=== PATIENT | female | born 1985 | race Caucasian/White ===

== ENCOUNTER 2019-10-26 08:00 | Outpatient (CLI) | payer OTHER ==
[~2019-10-26] VITALS: Ht 156.2 cm; Wt 79.5 kg
[2019-10-26 05:50] LABS: BASOPHILS # (AUTO) 0.02 x10^3/uL (0-0.1); BASOPHILS % (AUTO) 0 % (0-1); EOSINOPHILS % (AUTO) 2 % (1-7); LYMPHOCYTES # (AUTO) 1.71 x10^3/uL (1-3.4); LYMPHOCYTES % (AUTO) 25 % (22-44); MD NO; MEAN CORPUSCULAR HEMOGLOBIN 30.7 pg (27.0-34.8); MEAN CORPUSCULAR HGB CONC 33.7 g/dL (32.4-35.8); MEAN CORPUSCULAR VOLUME 91.1 fL (80-100); MEAN PLATELET VOLUME 11.4 fL (7.4-10.4); MONOCYTES # (AUTO) 0.56 x10^3/uL (0.2-0.8); MONOCYTES % (AUTO) 8 % (2-9); NEUTROPHILS # (AUTO) 4.45 x10^3/uL (1.8-6.8); NEUTROPHILS % (AUTO) 65 % (42-75); PLATELET COUNT 149 x10^3/uL (130-400); RED BLOOD COUNT 4.07 x10^6/uL (3.82-5.3); RED CELL DISTRIBUTION WIDTH 13.9 % (9.6-15.2)
[~2019-10-26 08:00] MED LIST: AMOX1TAB64 PO; CALCIUM CARBONATE 500 MG TAB.CHEW PO PRN; D5%-LACTATED RINGERS 1,000 ML IV SCH; FENTANYL PF 100 MCG/2ML IV PRN; FENTANYL PF 100 MCG/2ML IVPush PRN; HYDR-3237 PO; LACTATED RINGERS 1,000 ML IV SCH; MISOPROSTOL 25 MCG TABLET ONE; MISOPROSTOL 25 MCG TABLET VG PRN; NEWBORN KIT ONE; ONDA4TAB10 PO; ONDANSETRON 2MG/ML, 2ML IVPush PRN; OXYTOCIN 30U/ 0.9% NaCL 500ML 500 ML IV ONE; OXYTOCIN 30U/ 0.9% NaCL 500ML 500 ML IV PRN; OXYTOCIN 30U/ 0.9% NaCL 500ML 500 ML ONE; PLEASE ENTER HEIGHT AND WEIGHT MC SCH; PREN-59 PO; SODIUM CHLORIDE FLUSH 10ML SYR IVF PRN; TERBUTALINE 1 MG/ML, 1ML IVPush PRN; TERBUTALINE 1 MG/ML, 1ML SQ PRN
[2019-10-26] MEDS ORDERED: MISOPROSTOL 25 MCG TABLET ONE (10:24)
[2019-10-27] MEDS ORDERED: ONDANSETRON 2MG/ML, 2ML ONE (09:57)
[2019-10-27] MEDS ORDERED: OXYTOCIN 30U/ 0.9% NaCL 500ML 500 ML ONE (15:35)
[2019-10-28] MEDS ORDERED: IBUP-1222 PO (08:03)
== END 2019-10-26 11:09 | disposition home or self-care (01) ==
LOC: LDOP 08:00 → EDSTATUS 08:54 → UNDODISIN 11:00 → LDOP 11:09
PROVIDERS: ATTEND Obstetrics & Gynecology
DX: O47.1 False labor at or after 37 completed weeks of gestation (principal); Z3A.40 40 weeks gestation of pregnancy
CPT/HCPCS: 36415; 85025; 86592; 86850; 86900; G0378

== ENCOUNTER 2020-01-14 10:12 | Outpatient (CLI) | payer OTHER ==
[~2020-01-14 10:12] MED LIST changes: -CALCIUM CARBONATE 500 MG TAB.CHEW PO PRN; -D5%-LACTATED RINGERS 1,000 ML IV SCH; -FENTANYL PF 100 MCG/2ML IV PRN; -FENTANYL PF 100 MCG/2ML IVPush PRN; +IBUP-1222 PO; -LACTATED RINGERS 1,000 ML IV SCH; -MISOPROSTOL 25 MCG TABLET ONE; -MISOPROSTOL 25 MCG TABLET VG PRN; -NEWBORN KIT ONE; -ONDANSETRON 2MG/ML, 2ML IVPush PRN; -OXYTOCIN 30U/ 0.9% NaCL 500ML 500 ML IV ONE; -OXYTOCIN 30U/ 0.9% NaCL 500ML 500 ML IV PRN; -OXYTOCIN 30U/ 0.9% NaCL 500ML 500 ML ONE; -PLEASE ENTER HEIGHT AND WEIGHT MC SCH; -SODIUM CHLORIDE FLUSH 10ML SYR IVF PRN; -TERBUTALINE 1 MG/ML, 1ML IVPush PRN; -TERBUTALINE 1 MG/ML, 1ML SQ PRN
[2020-01-14] MEDS ORDERED: LACTATED RINGERS 1,000 ML IV SCH (10:45)
[2020-01-14 11:20] LABS: BASOPHILS # (AUTO) 0.03 x10^3/uL (0-0.1); BASOPHILS % (AUTO) 1 % (0-1); EOSINOPHILS # (AUTO) 0.13 x10^3/uL (0-0.4); EOSINOPHILS % (AUTO) 2 % (1-7); LYMPHOCYTES # (AUTO) 2.19 x10^3/uL (1-3.4); LYMPHOCYTES % (AUTO) 39 % (22-44); MD NO; MEAN CORPUSCULAR HEMOGLOBIN 30.3 pg (27.0-34.8); MEAN CORPUSCULAR HGB CONC 33.2 g/dL (32.4-35.8); MEAN PLATELET VOLUME 9.2 fL (7.4-10.4); MONOCYTES # (AUTO) 0.42 x10^3/uL (0.2-0.8); MONOCYTES % (AUTO) 7 % (2-9); NEUTROPHILS # (AUTO) 2.92 x10^3/uL (1.8-6.8); NEUTROPHILS % (AUTO) 51 % (42-75); PLATELET COUNT 245 x10^3/uL (130-400); RED BLOOD COUNT 4.63 x10^6/uL (3.82-5.3); RED CELL DISTRIBUTION WIDTH 14.3 % (9.6-15.2)
[2020-01-14 11:23] LABS: MICROSCOPIC NOT IND
[2020-01-14 12:22] LABS: ALANINE AMINOTRANSFERASE 34 U/L (12-78); ALBUMIN 4.2 g/dL (3.4-5.0); ANION GAP 6 mmol/L (5-15); CALCIUM 9.3 mg/dL (8.5-10.1); CHLORIDE 108 mmol/L (98-107); CREATININE 0.87 mg/dL (0.55-1.02)
[2020-01-14 12:24] LABS: ALKALINE PHOSPHATASE 97 U/L (45-117); BILIRUBIN,TOTAL 0.4 mg/dL (0.2-1.0)
== END 2020-01-14 23:59 | disposition home or self-care (01) ==
LOC: STAR 10:12
PROVIDERS: ATTEND Obstetrics & Gynecology
DX: Z01.818 Encounter for other preprocedural examination (principal)
CPT/HCPCS: 36415; 80053; 81003; 84702; 85025

== ENCOUNTER 2020-01-18 10:14 | Day surgery (SDC) | payer OTHER ==
[2020-01-14 10:32] VITALS: BP 102/75
[~2020-01-18] VITALS: Ht 154.9 cm; Wt 68.7 kg
[~2020-01-18 10:14] MED LIST changes: +BUPIVACAINE/PF-EPI 0.25% 1:200K ONE; +SILVER NITRATE STICK TP ONE
[2020-01-18 10:49] VITALS: BP 100/66
[2020-01-18 10:52] LABS: HCG UR SG 1.024 (1.003-1.030)
[2020-01-18] MEDS ORDERED: CHLORHEXIDINE 15 ML UDC ONE (10:54)
[2020-01-18] MEDS ORDERED: CHLORHEXIDINE 15 ML UDC MM ONE (11:00)
[2020-01-18] MEDS ORDERED: LACTATED RINGERS 1,000 ML IV SCH (11:09)
[2020-01-18] MEDS ORDERED: BUPIVACAINE/PF-EPI 0.25% 1:200K ONE (11:40)
[2020-01-18] MEDS ORDERED: SILVER NITRATE STICK TP ONE (11:41)
[2020-01-18] MEDS ORDERED: MIDAZOLAM 1 MG/ML, 2ML ONE (11:58)
[2020-01-18] MEDS ORDERED: FENTANYL PF 250 MCG/5ML ONE (11:58)
[2020-01-18] MEDS ORDERED: PROPOFOL 10 MG/ML, 20ML ONE (12:02)
[2020-01-18] MEDS ORDERED: DEXAMETHASONE 4 MG/ML, 1ML ONE ×2 (12:06→12:08)
[2020-01-18] MEDS ORDERED: SUCCINYLCHOLINE 20 MG/ML, 10ML ONE (12:07)
[2020-01-18] MEDS ORDERED: ROCURONIUM 10MG/ML,5ML ONE (12:08)
[2020-01-18] MEDS ORDERED: ONDANSETRON 2MG/ML, 2ML ONE ×3 (12:08→14:06)
[2020-01-18] MEDS ORDERED: SUGAMMADEX 200 MG/2 ML IVPush ONE (12:08)
[2020-01-18] MEDS ORDERED: PROMETHAZINE 25 MG/ML, 1ML IVPush PRN (12:30)
[2020-01-18] MEDS ORDERED: MEPERIDINE/PF 25MG/0.5ML IVPush PRN (12:30)
[2020-01-18] MEDS ORDERED: MIDAZOLAM 1 MG/ML, 2ML IV PRN (12:30)
[2020-01-18] MEDS ORDERED: EPHEDRINE 50 MG/ML, 1ML IVPush PRN (12:30)
[2020-01-18] MEDS ORDERED: hydrALAzine 20 MG/ML, 1ML IV PRN (12:30)
[2020-01-18] MEDS ORDERED: PROMETHAZINE 12.5 MG SUPP PR PRN (12:30)
[2020-01-18] MEDS ORDERED: ACETAMINOPHEN 325 MG TABLET PO PRN (12:30)
[2020-01-18] MEDS ORDERED: DIPHENHYDRAMINE 50 MG/ML, 1ML IVPush PRN (12:30)
[2020-01-18] MEDS ORDERED: HYDROmorphone 1 MG/ML, 1ML INJ IVPush PRN (12:30)
[2020-01-18] MEDS ORDERED: DIAZEPAM 5 MG/ML, 2ML IVPush PRN (12:30)
[2020-01-18] MEDS ORDERED: ONDANSETRON 2MG/ML, 2ML IVPush PRN (12:30)
[2020-01-18] MEDS ORDERED: OXYcodone 5 MG/5 ML ORAL.SOL UDC PO PRN (12:30)
[2020-01-18] MEDS ORDERED: ALBUTEROL SULFATE 2.5 MG/3 ML NPPB PRN (12:30)
[2020-01-18] MEDS ORDERED: LABETALOL 5MG/ML, 20ML IV PRN (12:30)
[2020-01-18] MEDS: FENTANYL PF 100 MCG/2ML IV PRN ×2 (13:09→13:27)
[2020-01-18] MEDS ORDERED: FENTANYL PF 100 MCG/2ML ONE (13:12)
[2020-01-18] MEDS ORDERED: OXYcodone 5 MG/5 ML ORAL.SOL UDC ONE (13:12)
[2020-01-18] MEDS ORDERED: ACETAMINOPHEN 650 MG/20.3 ML UDC ONE (13:12)
[2020-01-18] MEDS ORDERED: MEPERIDINE/PF 25MG/ML,1ML ONE (13:31)
[2020-01-18] MEDS ORDERED: PROMETHAZINE 25 MG SUPP PR ONE (14:23)
== END 2020-01-18 17:30 | disposition home or self-care (01) ==
LOC: OUT 10:14
PROVIDERS: ATTEND Obstetrics & Gynecology
DX: Z30.2 Encounter for sterilization (principal); Z11.59 Encounter for screening for other viral diseases; Z79.899 Other long term (current) drug therapy; Z90.49 Acquired absence of other specified parts of digestive tract
CPT/HCPCS: 36415; 58670; 81025; 86850; 86900; 87635; J0330; J1100; J2175; J2250; J2405; J2704; J3010; J7120